=== PATIENT | female | born 1970 | race Asian ===

== ENCOUNTER → 2017-06-04 | Outpatient (CLI) | payer OTHER | LOC: MC.RAD 14:00 | DX: Z12.31 Encounter for screening mammogram for malignant neoplasm of breast (principal) ==

== ENCOUNTER → 2019-05-28 | Outpatient (CLI) | payer OTHER | LOC: MC.RAD 05-27 14:45 | DX: Z12.31 Encounter for screening mammogram for malignant neoplasm of breast (principal) ==

== ENCOUNTER → 2021-07-17 | Outpatient (CLI) | payer OTHER ==
[~2021-07-17] MED LIST: FISH OIL 500 M1 EAC1 PO; GLUCOSAMINE SU500 M2 PO; MULTIVITAMIN SEN PO; ZYRTEC 10MG10 MG PO
== END ==
LOC: MC.RAD 13:45
DX: Z12.31 Encounter for screening mammogram for malignant neoplasm of breast (principal); R92.0 Mammographic microcalcification found on diagnostic imaging of breast

== ENCOUNTER 2021-07-20 07:28 | Day surgery (SDC) | payer OTHER ==
[~2021-07-20] VITALS: Ht 157.5 cm; Wt 57.4 kg
[2021-07-20] MEDS ORDERED: ZYRTEC 10MG10 MG PO (07:38)
[2021-07-20] MEDS ORDERED: FISH OIL 500 M1 EAC1 PO (07:38)
[2021-07-20] MEDS ORDERED: MULTIVITAMIN SEN PO (07:38)
[2021-07-20] MEDS ORDERED: GLUCOSAMINE SU500 M2 PO (07:39)
[2021-07-20 07:49] VITALS: BP 100/74; PULSE 76; TEMP 97.9
[2021-07-20 09:15] VITALS: BP 98/49; PULSE 84; TEMP 97.3
[2021-07-20 09:30] VITALS: BP 101/73; PULSE 70
[2021-07-20 09:45] VITALS: BP 117/82; PULSE 65
--- NOTE | 2021-07-20 09:45 | NUR ---
0915- Pt returns from endo procedure via cart and RN assist to [facility]. Pt ambulates from cart to recliner with RN assist. Monitors on and alarms set. Call light within reach. Pt sleepy, wakes easily to name and oriented. Pt requests tea and muffin. Pt denies any pain or nausea. 0930- Pt taking food and drink well. No complications noted. Called , no answer, left message. 0945- Vitals stable. Alert and oriented. Tolerating food and drink well. Discontinued IV with no complications. Instructed to dress while waiting to speak to provider.
--- NOTE | 2021-07-20 09:45 | NUR ---
Called , no answer.
--- NOTE | 2021-07-20 10:44 | NUR ---
1032- Provider in to speak with patient 1035- Education material and discharge instructions reviewed and handed to pt. Patient verbalized understanding. 1044- Transfered patient to personal vehicle to be driven home by .
== END 2021-07-20 10:44 | disposition home or self-care (01) ==
LOC: SDCO 07:28
DX: Z12.11 Encounter for screening for malignant neoplasm of colon (principal); G47.00 Insomnia, unspecified; G43.909 Migraine, unspecified, not intractable, without status migrainosus; J30.9 Allergic rhinitis, unspecified; E03.9 Hypothyroidism, unspecified; Z79.899 Other long term (current) drug therapy
CPT/HCPCS: J7030

== ENCOUNTER → 2021-07-24 | Outpatient (CLI) | payer OTHER | LOC: MC.RAD 14:56 | DX: R59.0 Localized enlarged lymph nodes (principal); R92.0 Mammographic microcalcification found on diagnostic imaging of breast ==

== ENCOUNTER → 2021-08-02 | Outpatient (CLI) | payer OTHER | LOC: MC.RAD 08:52 | DX: N63.31 Unspecified lump in axillary tail of the right breast (principal); R92.0 Mammographic microcalcification found on diagnostic imaging of breast; Z98.82 Breast implant status | CPT/HCPCS: A4648 ==